=== PATIENT | male | born 1995 | race Caucasian/White ===

== ENCOUNTER 2018-10-31 03:39 | Emergency (ER) | payer OTHER ==
[~2018-10-31] VITALS: Ht 160 cm; Wt 63.5 kg
[2018-10-31 03:42] VITALS: BP 139/85
[2018-10-31 03:44] VITALS: BP 139/85
--- NOTE | 2018-10-31 03:45 | NUR ---
PT TO ED BIB [facility] FOR PREBOOK S/P TC WITH ETOH. PT DENIES PAIN AT THIS TIME. NO BOVIOUS ODOR OF ETOH NOTED. PT PLACED INTO CHAIR PENDING MD SUTTON. PMH--DENIES NKA
--- NOTE | 2018-10-31 04:00 | NUR ---
PATIENT BIB [facility]. PATIENT EXAMINED BY DR. DIMAS. PATIENT MEDICALLY CLEARED AND RELEASED IN CUSTODY IN STABLE CONDITION. ORIGINAL PRE-BOOK FORM GIVEN TO OFFICER VIOLETTA.
--- NOTE | 2018-10-31 04:03 | NUR ---
Patient discharged with v/s stable. Written and verbal after care instructions given and explained. Patient verbalized understanding. Ambulatory with in custody. All questions addressed prior to discharge. Advised to follow up with PMD.
== END 2018-10-31 03:58 ==
LOC: MED 03:39
DX: Z02.89 Encounter for other administrative examinations (principal); V89.2XXA Person injured in unspecified motor-vehicle accident, traffic, initial encounter; Y93.89 Activity, other specified; Y92.89 Other specified places as the place of occurrence of the external cause; Y99.8 Other external cause status
CPT/HCPCS: 99283